=== PATIENT | female | born 1990 | race Two or more races ===

== ENCOUNTER → 2024-02-16 | Day surgery (SDC) | payer BC ==
[~2024-02-16] MED LIST: Lidocaine 1% PF 5 ML VIAL ONE; Sodium Bicarbonate 2.5 MEQ/5 ML SDV ONE; fentaNYL 50 mcg/mL 1 mL Vial ONE
== END ==
LOC: CT 08:32
PROVIDERS: ATTEND Internal Medicine
PROC: 079T3ZX Drainage of Bone Marrow, Percutaneous Approach, Diagnostic (ICD-10-PCS; principal; 2024-02-16)
DX: D61.9 Aplastic anemia, unspecified (principal); Z88.1 Allergy status to other antibiotic agents
CPT/HCPCS: 36415; 38222; 77012; 84703; 85025; 85097; 85610; 85730; 88184; 88237; 88305; 88311; 88313; J3010

== ENCOUNTER 2024-06-18 11:33 | Day surgery (SDC) | payer BC ==
[2024-06-18] MEDS: diphenhydrAMINE 25 MG CAP ONE (13:08)
[2024-06-18] MEDS: Acetaminophen 500 MG TAB ONE (13:08)
[2024-06-18] MEDS ORDERED: diphenhydrAMINE 25 MG CAP PO SCH (13:15)
[2024-06-18] MEDS ORDERED: Acetaminophen 500 MG TAB PO SCH (13:15)
[2024-06-18 16:35] VITALS: BP 115/57; TEMP 98.7
== END 2024-06-18 17:02 | disposition home or self-care (01) ==
LOC: ONC/OP 11:33
PROVIDERS: ATTEND Internal Medicine
DX: D64.9 Anemia, unspecified (principal); D69.6 Thrombocytopenia, unspecified
CPT/HCPCS: 36415; 36430; 86850; 86900; 86901; P9016

== ENCOUNTER 2024-06-26 09:53 | Day surgery (SDC) | payer BC ==
[2024-06-26] MEDS ORDERED: Acetaminophen 500 MG TAB ONE (11:33)
[2024-06-26] MEDS ORDERED: diphenhydrAMINE 25 MG CAP ONE (11:34)
[2024-06-26] MEDS: diphenhydrAMINE 25 MG CAP PO SCH (11:36)
[2024-06-26] MEDS: Acetaminophen 500 MG TAB PO SCH (11:36)
[2024-06-26 12:49] VITALS: BP 140/85; TEMP 98.4
== END 2024-06-26 12:43 | disposition home or self-care (01) ==
LOC: ONC/OP 09:53
PROVIDERS: ATTEND Internal Medicine
DX: D64.9 Anemia, unspecified (principal); D69.6 Thrombocytopenia, unspecified
CPT/HCPCS: 36430; 86850; 86900; 86901; P9035

== ENCOUNTER 2024-06-29 12:20 | Day surgery (SDC) | payer BC ==
[~2024-06-29 12:20] MED LIST changes: +Acetaminophen 500 MG TAB PO SCH; -Lidocaine 1% PF 5 ML VIAL ONE; -Sodium Bicarbonate 2.5 MEQ/5 ML SDV ONE; +diphenhydrAMINE 25 MG CAP PO SCH; -fentaNYL 50 mcg/mL 1 mL Vial ONE
[2024-06-29] MEDS ORDERED: Acetaminophen 500 MG TAB ONE (14:44)
[2024-06-29] MEDS ORDERED: diphenhydrAMINE 25 MG CAP ONE (14:45)
[2024-06-29] MEDS: Acetaminophen 500 MG TAB PO SCH (14:46)
[2024-06-29] MEDS: diphenhydrAMINE 25 MG CAP PO SCH (14:46)
[2024-06-29 15:57] VITALS: BP 127/74; TEMP 98.3
== END 2024-06-29 16:06 | disposition home or self-care (01) ==
LOC: ONC/OP 12:20
PROVIDERS: ATTEND Internal Medicine
DX: D64.9 Anemia, unspecified (principal); D69.6 Thrombocytopenia, unspecified
CPT/HCPCS: 36430; 86850; 86900; 86901; P9035